=== PATIENT | female | born 1965 | race Caucasian/White ===

== ENCOUNTER 2017-09-24 07:59 | Emergency (ER) | payer SELFPAY ==
[~2017-09-24] VITALS: Ht 170.2 cm; Wt 60.8 kg
[2017-09-24] MEDS ORDERED: PRED20TA PO (08:26)
--- NOTE | 2017-09-24 08:26 | PHYS DOC ---
Adult General Chief Complaint Chief Complaint: SKIN RASH/ABSCESS [place] [employer] HPI Patient is a 52-year-old female who presents for evaluation of a pruritic rash to both upper extremities as well as the right upper chest and right face. She states that she was doing yard work and probably came into contact with poison yusuf. She states she's had similar reactions to poison yusuf in the past. She denies any other complaints at this time and is requesting steroids. She is alert and oriented 4, calm, appears to be no distress. States that she has no PCP. Review of Systems Review of Systems Constitutional: Denies fever or chills [] Eyes: Denies change in visual acuity, redness, or eye pain [] HENT: Denies nasal congestion or sore throat [] Respiratory: Denies cough or shortness of breath [] Cardiovascular: No additional information not addressed in HPI [] GI: Denies abdominal pain, nausea, vomiting, bloody stools or diarrhea [] : Denies dysuria or hematuria [] Musculoskeletal: Denies back pain or joint pain [] Integument: +itchy rash to arms, chest, face Neurologic: Denies headache, focal weakness or sensory changes [] Endocrine: Denies polyuria or polydipsia [] All other systems were reviewed and found to be within normal limits, except as documented in this note. Allergies Allergies Allergies Coded Allergies Type Severity Reaction Last Updated Verified No Known Drug Allergies 09/24/17 No Physical Exam Physical Exam Constitutional: Well developed, well nourished, no acute distress, non-toxic appearance. [] HENT: Normocephalic, atraumatic, bilateral external ears normal, oropharynx moist, no oral exudates, nose normal. [] Eyes: PERRLA, EOMI, conjunctiva normal, no discharge. [] Neck: Normal range of motion, no tenderness, supple, no stridor. [] Cardiovascular:Heart rate regular rhythm, no murmur [] Lungs & Thorax: Bilateral breath sounds clear to auscultation [] Abdomen: Bowel sounds normal, soft, no tenderness, no masses, no pulsatile masses. [] Skin: Warm, dry, no erythema,erythmatous rash with small vesicles consistent with stated h/o poison yusuf contact dermatitis noted on both arms, right upper chest/lower neck, and right lower eye lid, no sign of abscess, no petechiae ( total area of affected skin would be less than 2x2cm) Back: No tenderness, no CVA tenderness. [] Extremities: No tenderness, no cyanosis, no clubbing, ROM intact, no edema. [] Neurologic: Alert and oriented X 3, normal motor function, normal sensory function, no focal deficits noted. [] Psychologic: Affect normal, judgement normal, mood normal. [] EKG EKG [] Radiology/Procedures Radiology/Procedures [] Course & Med Decision Making Course & Med Decision Making Pertinent Labs and Imaging studies reviewed. (See chart for details) [] Dragon Disclaimer Dragon Disclaimer This electronic medical record was generated, in whole or in part, using a voice recognition dictation system. Departure Departure: Impression: Primary Impression: Poison yusuf dermatitis Disposition: HOME, SELF-CARE Condition: STABLE Referrals: [facility] (PCP) LARISA MCKEON MD Patient Instructions: Contact Dermatitis, Poison Ingestion, First-Aid measures in Additional Instructions: Take the medication as prescribed. Follow-up with the provider listed in the next 2-3 days. Return to the emergency Department immediately for new or worsening symptoms. Scripts Prednisone (PREDNISONE) 20 Mg Tablet 2 TAB PO DAILY for 14 Days, #21 TAB Two tabs daily for 7 days, then one tab daily for 7 days Prov: JULIA MCCAIN DO 09/24/17 JULIA MCCAIN DO Sep 24, 2017 08:26
[2017-09-24] MEDS ORDERED: DEXAMETHASONE SOD PHOS 10 MG/ML VIAL IM ONE (08:45)
[2017-09-24 08:51] VITALS: BP 111/71
== END 2017-09-24 08:51 | disposition home or self-care (01) ==
LOC: ER 07:59
DX: L23.7 Allergic contact dermatitis due to plants, except food (principal)
CPT/HCPCS: 96372; 99283; J1100